=== PATIENT | male | born 1990 | race African-American/Black ===

== ENCOUNTER 2018-07-17 13:11 | Emergency (ER) | payer SELFPAY ==
--- NOTE | 2018-07-17 15:29 | ER ---
Nurse's Notes [facility] Name: Tyler Mahmood Age: 27 yrs Sex: Male : 1990 Arrival Date: 07/17/2018 Time: 13:15 Bed 11 Private MD: None, None Diagnosis: Otitis media, unspecified, right ear;Influenza due to identified novel influenza A virus Presentation: 07/17 13:17 Presenting complaint: Patient states: i had cough, runny nose, congestion started 2 hj days ago and its getting worse last night; i want a work note too that i will go back to work tomorrow;. Transition of care: patient was not received from another setting of care. Onset of symptoms was July 17, 2018. Risk Assessment: Do you want to hurt yourself or someone else? Patient reports no desire to harm self or others. Initial Sepsis Screen: Does the patient meet any 2 criteria? No. Patient's initial sepsis screen is negative. Does the patient have a suspected source of infection? No. Patient's initial sepsis screen is negative. Care prior to arrival: None. 13:17 Method Of Arrival: Ambulatory 13:17 Acuity: ANGELINE 4 hj Triage Assessment: 13:18 Headache History: Denies prior headaches. General: Appears in no apparent distress. hj uncomfortable, Behavior is calm, cooperative, appropriate for age. Pain: Complains of pain in head Pain Pain began Also complains of. Neuro: Level of Consciousness is awake, alert, obeys commands, Oriented to person, place, time, situation, Appropriate for age. Historical: - Allergies: 13:18 No Known Allergies; hj - Home Meds: 13:18 None [Active]; hj - PMHx: 13:18 None; hj - PSHx: 13:18 None; hj - Immunization history:: Adult Immunizations up to date. - Social history:: Smoking status: Patient/guardian denies using tobacco, Patient/guardian denies using alcohol. - Ebola Screening: : Patient negative for fever greater than or equal to 101.5 degrees Fahrenheit, and additional compatible Ebola Virus Disease symptoms Patient denies exposure to infectious person Patient denies travel to an Ebola-affected area in the 21 days before illness onset. Screenin:19 Abuse screen: Denies threats or abuse. Denies injuries from another. Nutritional hj screening: No deficits noted. Tuberculosis screening: No symptoms or risk factors identified. Fall Risk None identified. Assessment: 14:28 General: Appears in no apparent distress. comfortable. General: Reports fever for. iw Pain: Complains of pain in head. Neuro: Level of Consciousness is awake, alert, obeys commands, Oriented to person, place, time, situation, Moves all extremities. Cardiovascular: Patient's skin is warm and dry. Respiratory: Airway is patent Respiratory effort is even, unlabored, Respiratory pattern is regular. Derm: Skin is intact, is healthy with good turgor. Musculoskeletal: Range of motion: intact in all extremities. Vital Signs: 13:19 BP 134 / 84; Pulse 85; Resp 18; Temp 97.7(O); Pulse Ox 100% on R/A; Weight 131.54 kg; hj Height 5 ft. 9 in. (175.26 cm); Pain 5/10; 13:19 Body Mass Index 42.82 (131.54 kg, 175.26 cm) hj ED Course: 13:15 Patient arrived in ED. mr 13:16 None, None is Private Physician. mr 13:18 Triage completed. hj 13:19 Arm band placed on left wrist. hj 13:19 Patient has correct armband on for positive identification. Placed in gown. Bed in low hj position. Call light in reach. Side rails up X 1. Adult w/ patient. 13:54 Tata Johansen, RN is Primary Nurse. iw 14:03 Britton Santos PA is PHCP. cp 14:03 Kvng Ospina MD is Attending Physician. cp 15:51 No provider procedures requiring assistance completed. Patient did not have IV access iw during this emergency room visit. Administered Medications: No medications were administered Outcome: 15:28 Discharge ordered by MD. cp 15:52 Discharged to home ambulatory. iw 15:52 Condition: good 15:52 Discharge instructions given to patient, Instructed on discharge instructions, follow up and referral plans. medication usage, Demonstrated understanding of instructions, follow-up care, medications, Prescriptions given X 1. 15:53 Patient left the ED. ms Signatures: Bridgett Cole mr Tata Johansen RN RN Raya Martinez ms Perez Rey RN RN Britton Santos PA PA cp Corrections: (The following items were deleted from the chart) 13:21 13:17 Presenting complaint: Patient states: i had cough, runny nose, congestion started hj 2 days ago and its getting worse last night; hj 13:22 13:19 Pulse 85bpm; Resp 18bpm; Pulse Ox 100% RA; Temp 97.7F Oral; 131.54 kg; Height 5 hj ft. 9 in.; BMI: 42.8; Pain 5/10; hj
--- NOTE | 2018-07-17 15:29 | EDPHYS ---
Physician Documentation [facility] Name: Tyler Mahmood Age: 27 yrs Sex: Male : 1990 Arrival Date: 07/17/2018 Time: 13:15 Bed 11 Private MD: None, None ED Physician Kvng Ospina HPI: 07/17 14:15 This 27 yrs old Black Male presents to ER via Ambulatory with complaints of Sinus cp Congestion, Headache, Dizziness. 14:15 The patient or guardian reports cough, that is intermittent. cp 14:15 Onset: The symptoms/episode began/occurred 3 day(s) ago. cp 14:15 Associated signs and symptoms: Pertinent positives: earache, sore throat, sinus cp pressure and sinus congestion, headache, Pertinent negatives: diarrhea, fever, vomiting. Historical: - Allergies: 13:18 No Known Allergies; hj - Home Meds: 13:18 None [Active]; hj - PMHx: 13:18 None; hj - PSHx: 13:18 None; hj - Immunization history:: Adult Immunizations up to date. - Social history:: Smoking status: Patient/guardian denies using tobacco, Patient/guardian denies using alcohol. - Ebola Screening: : Patient negative for fever greater than or equal to 101.5 degrees Fahrenheit, and additional compatible Ebola Virus Disease symptoms Patient denies exposure to infectious person Patient denies travel to an Ebola-affected area in the 21 days before illness onset. ROS: 14:20 Constitutional: Negative for body aches, chills, fever, poor PO intake. cp 14:20 Eyes: Negative for injury, pain, redness, and discharge. cp Exam: 14:25 Constitutional: The patient appears in no acute distress, alert, awake, non-toxic, well cp developed, well nourished, obese. 14:25 Head/Face: Normocephalic, atraumatic. cp 14:25 Eyes: Periorbital structures: appear normal, Conjunctiva: normal, no exudate, no injection, Sclera: no appreciated abnormality, Lids and lashes: appear normal, bilaterally. 14:25 ENT: External ear(s): are unremarkable, Ear canal(s): are normal, clear, TM's: bulging, is not appreciated, bilaterally, erythema, that is mild, on the right, Examination of the other ear shows no obvious abnormality, Nose: is normal, Mouth: Lips: moist, Oral mucosa: pink and intact, moist, Posterior pharynx: Airway: no evidence of obstruction, patent, Tonsils: with erythema, no enlargement, no exudate, Uvula: midline, swelling, is not appreciated, erythema, that is mild, exudate, is not appreciated. 14:25 Neck: ROM/movement: is normal, is supple, without pain, no range of motions limitations, no meningismus, no nuchal rigidity. 14:25 Chest/axilla: Inspection: normal, Palpation: is normal, no crepitus, no tenderness. 14:25 Cardiovascular: Rate: normal, Rhythm: regular. 14:25 Respiratory: the patient does not display signs of respiratory distress, Respirations: normal, no use of accessory muscles, no retractions, no splinting, no tachypnea, labored breathing, is not present, Breath sounds: are clear throughout, no decreased breath sounds, no stridor, no wheezing. 14:25 Abdomen/GI: Exam negative for discomfort, distension, guarding, Inspection: obese 14:25 Skin: cellulitis, is not appreciated, no rash present. Vital Signs: 13:19 BP 134 / 84; Pulse 85; Resp 18; Temp 97.7(O); Pulse Ox 100% on R/A; Weight 131.54 kg; hj Height 5 ft. 9 in. (175.26 cm); Pain 5/10; 13:19 Body Mass Index 42.82 (131.54 kg, 175.26 cm) hj MDM: 14:03 Patient medically screened. cp 15:27 Data reviewed: vital signs, nurses notes, lab test result(s). cp 15:27 Differential Diagnosis: Bronchitis Influenza Sinusitis Otitis Media Pneumonia. cp Counseling: I had a detailed discussion with the patient and/or guardian regarding: the historical points, exam findings, and any diagnostic results supporting the discharge/admit diagnosis, lab results, to return to the emergency department if symptoms worsen or persist or if there are any questions or concerns that arise at home. 07/17 14:08 Order name: Influenza Screen (a \T\ B); Complete Time: 15:24 cp 07/17 15:25 Interpretation: Reviewed. cp Administered Medications: No medications were administered Disposition: 07/17/18 15:28 Discharged to Home. Impression: Otitis media, unspecified, right ear, Influenza due to identified novel influenza A virus. - Condition is Stable. - Discharge Instructions: Otitis Media, Adult, Influenza, Adult, Form - Excuse from Work, School, or Physical Activity. - Prescriptions for Zithromax Z- Rashid 250 mg Oral Tablet - take 1 tablet by ORAL route as directed for 5 days Day 1 - take two (2) tablets one time. Day 2, 3, 4 , 5 take one (1) tablet once daily.; 6 tablet. - Work release form, Medication Reconciliation Form, Thank You Letter, Antibiotic Education, Prescription Opioid Use form. - Follow up: Private Physician; When: 2 - 3 days; Reason: symptoms continue. - Problem is new. - Symptoms have improved. Addendum: 07/18/2018 17:33 Co-signature as Attending Physician, Kvng Ospina MD. g s Signatures: Dispatcher [employer] EDRaya Tejada ms, Henry, RN RN hj Page, Corey, PA PA cp Starr, Gregory, MD MD Corrections: (The following items were deleted from the chart) 07/17 15:53 15:28 07/17/2018 15:28 Discharged to Home. Impression: Otitis media, unspecified, right ms ear; Influenza due to identified novel influenza A virus. Condition is Stable. Forms are Medication Reconciliation Form, Thank You Letter, Antibiotic Education, Prescription Opioid Use. Follow up: Private Physician; When: 2 - 3 days; Reason: symptoms continue. Problem is new. Symptoms have improved. cp
== END 2018-07-17 15:53 | disposition home or self-care (01) ==
LOC: ER 13:11
DX: J10.1 Influenza due to other identified influenza virus with other respiratory manifestations (principal); H66.91 Otitis media, unspecified, right ear
CPT/HCPCS: 87804; 99282

== ENCOUNTER 2019-12-10 21:47 | Emergency (ER) | payer SELFPAY, OTHER ==
--- OUTSIDE RECORDS SUMMARY | 2019-12-10 21:48 | XMS REPORT | Continuity of Care Document ---
:1990 Author Organization [facility] t Address [facility]ly [facility] [place] [address] Care Team Providers Name Role Phone Unavailable Unavailable Unavailable Problems This patient has no known problems. Allergies, Adverse Reactions, Alerts This patient has no known allergies or adverse reactions. Medications This patient has no known medications. Procedures This patient has no known procedures. Results This patient has no known results.
--- NOTE | 2019-12-10 23:57 | EDPHYS ---
Physician Documentation [facility] Name: Tyler Mahmood Age: 29 yrs Sex: Male : 1990 Arrival Date: 12/10/2019 Time: 21:52 Bed 15 Private MD: ED Physician Kenn Crouch HPI: 12/09 23:50 This 29 yrs old Black Male presents to ER via Ambulatory with complaints of Fever, tw4 Doesn't Feel Right. 23:50 The patient reports fever, not measured (subjective). Onset: The symptoms/episode tw4 began/occurred 5 day(s) ago. Modifying factors: there are no obvious modifying factors. Associated signs and symptoms: Pertinent positives: headache. Severity of symptoms: At their worst the symptoms were moderate in the emergency department the symptoms are unchanged. The patient has not experienced similar symptoms in the past. Historical: - Allergies: 21:57 No Known Allergies; ca1 - Home Meds: 21:57 None [Active]; ca1 - PMHx: :57 None; ca1 - PSHx: 21:57 None; ca1 - Immunization history:: Adult Immunizations up to date. - Social history:: Smoking status: Patient denies any tobacco usage or history of. ROS: 23:50 Cardiovascular: Negative for chest pain, palpitations, and edema, Respiratory: Negative tw4 for shortness of breath, cough, wheezing, and pleuritic chest pain, Abdomen/GI: Negative for abdominal pain, nausea, vomiting, diarrhea, and constipation, Back: Negative for injury and pain, MS/Extremity: Negative for injury and deformity, Skin: Negative for injury, rash, and discoloration. 23:50 Constitutional: Positive for body aches, fatigue, fever, Negative for poor PO intake. 23:50 Neuro: Positive for headache, Negative for altered mental status, dizziness, gait disturbance, tinnitus, tremor, visual changes. Exam: 23:51 Constitutional: This is a well developed, well nourished patient who is awake, alert, tw4 and in no acute distress. Head/Face: Normocephalic, atraumatic. Cardiovascular: Regular rate and rhythm with a normal S1 and S2. No gallops, murmurs, or rubs. Normal PMI, no JVD. No pulse deficits. Respiratory: Lungs have equal breath sounds bilaterally, clear to auscultation and percussion. No rales, rhonchi or wheezes noted. No increased work of breathing, no retractions or nasal flaring. Abdomen/GI: Soft, non-tender, with normal bowel sounds. No distension or tympany. No guarding or rebound. No evidence of tenderness throughout. Back: No spinal tenderness. No costovertebral tenderness. Full range of motion. MS/ Extremity: Pulses equal, no cyanosis. Neurovascular intact. Full, normal range of motion. Neuro: Awake and alert, GCS 15, oriented to person, place, time, and situation. Cranial nerves II-XII grossly intact. Motor strength 5/5 in all extremities. Sensory grossly intact. Cerebellar exam normal. Normal gait. Vital Signs: 21:54 BP 143 / 71; Pulse 101; Resp 18 S; Temp 99.6(TE); Pulse Ox 98% on R/A; Weight 145.15 kg ca1 (R); Height 5 ft. 9 in. (175.26 cm) (R); 21:54 Body Mass Index 47.26 (145.15 kg, 175.26 cm) ca1 MDM: 22:38 Patient medically screened. tw4 23:51 Differential diagnosis: viral Infection, bacterial infection, URI, bronchitis, tw4 pneumonia. Data reviewed: vital signs, nurses notes. Data reviewed: lab test result(s), Flu: negative. Data interpreted: Pulse oximetry: Interpretation: normal. Counseling: I had a detailed discussion with the patient and/or guardian regarding: the historical points, exam findings, and any diagnostic results supporting the discharge/admit diagnosis, radiology results. Special discussion: I discussed with the patient/guardian in detail that at this point there is no indication for admission to the hospital. It is understood, however, that if the symptoms persist or worsen the patient needs to return immediately for re-evaluation. 12/09 22:44 Order name: COVID-19 12/09 22:44 Order name: Flu 12/09 22:44 Order name: Strep 12/09 22:44 Order name: Document PUI#; Complete Time: 23:19 12/09 23:53 Order name: Throat Culture EDMS 12/09 22:44 Order name: Labs collected and sent; Complete Time: 23:19 12/09 22:44 Order name: O2 Per Protocol; Complete Time: 23:19 tw4 Administered Medications: No medications were administered Disposition: 12/10/19 23:56 Discharged to Home. Impression: Headache, Viral infection, unspecified. - Condition is Stable. - Discharge Instructions: General Headache Without Cause, Viral Respiratory Infection. - Prescriptions for Ibuprofen 800 mg Oral Tablet - take 1 tablet by ORAL route every 8 hours As needed take with food; 30 tablet. Albuterol Sulfate 90 mcg/actuation - inhale 1-2 puff by INHALATION route every 4-6 hours; 1 Inhaler. - Medication Reconciliation Form, Thank You Letter, Antibiotic Education, Prescription Opioid Use form. - Follow up: Private Physician; When: Upon discharge from the Emergency Department; Reason: Recheck today's complaints, Continuance of care, Re-evaluation by your physician. - Problem is new. - Symptoms are unchanged. Addendum: 12/14/2019 13:44 Addendum: Called and notified patient of positive COVID-19 result at 1344, feels r n better, questions answered, told health department would be in contact for further recommendations and proof of positive test. . Signatures: Dispatcher [employer] EDMS Deepak Rodriguez MD MD rn Wadley, Terrence, MD MD tw4 Zandra Lieberman RN RN ls4 Sarah Blood RN RN ca1 Corrections: (The following items were deleted from the chart) 12/10 00:20 07 23:56 12/10/2019 23:56 Discharged to Home. Impression: Headache; Viral infection, ls4 unspecified. Condition is Stable. Forms are Medication Reconciliation Form, Thank You Letter, Antibiotic Education, Prescription Opioid Use. Follow up: Private Physician; When: Upon discharge from the Emergency Department; Reason: Recheck today's complaints, Continuance of care, Re-evaluation by your physician. Problem is new. Symptoms are unchanged. tw4
--- NOTE | 2019-12-10 23:57 | ER ---
Nurse's Notes [facility] Name: Tyler Mahmood Age: 29 yrs Sex: Male : 1990 Arrival Date: 12/10/2019 Time: 21:52 Bed 15 Private MD: Diagnosis: Headache;Viral infection, unspecified Presentation: 12/09 21:54 Chief complaint: Patient states: Headache x 5-6 days. Reports fever. Htemp 100.3F. ca1 Coronavirus screen: Patient denies a cough. Patient denies shortness of breath or difficulty breathing. Patient reports a measured and/or subjective temperature greater than 100.4F. Patient denies travel on a cruise ship or to a country the [facility] currently lists as an affected area. Patient denies contact with known and/or suspected case of COVID-19. Surgical mask in place. Instructed on keeping mask at all times and keep 6 feet distance from other people in the lobby. Verbalized understanding. Ebola Screen: Patient negative for fever greater than or equal to 101.5 degrees Fahrenheit, and additional compatible Ebola Virus Disease symptoms Patient denies exposure to infectious person. Patient denies travel to an Ebola-affected area in the 21 days before illness onset. No symptoms or risks identified at this time. Initial Sepsis Screen: Does the patient meet any 2 criteria? No. Patient's initial sepsis screen is negative. Does the patient have a suspected source of infection? No. Patient's initial sepsis screen is negative. Risk Assessment: Do you want to hurt yourself or someone else? Patient reports no desire to harm self or others. Onset of symptoms was December 10, 2019. 21:54 Method Of Arrival: Ambulatory ca1 21:54 Acuity: ANGELINE 4 ca1 Triage Assessment: 23:19 General: Appears in no apparent distress. comfortable, Behavior is calm, cooperative. ls4 Pain: Denies pain. Neuro: No deficits noted. Cardiovascular: Capillary refill < 3 seconds. Respiratory: Airway is patent Respiratory effort is even, unlabored, Respiratory pattern is regular, Breath sounds are clear bilaterally. GI: No deficits noted. No signs and/or symptoms were reported involving the gastrointestinal system. : No deficits noted. No signs and/or symptoms were reported regarding the genitourinary system. Derm: Skin is intact, is healthy with good turgor, Skin is dry, Skin is normal, Skin temperature is warm. Musculoskeletal: No deficits noted. No signs and/or symptoms reported regarding the musculoskeletal system. Historical: - Allergies: 21:57 No Known Allergies; ca1 - Home Meds: 21:57 None [Active]; ca1 - PMHx: 21:57 None; ca1 - PSHx: 21:57 None; ca1 - Immunization history:: Adult Immunizations up to date. - Social history:: Smoking status: Patient denies any tobacco usage or history of. Screenin:27 Abuse screen: Denies threats or abuse. Denies injuries from another. Nutritional ls4 screening: No deficits noted. Tuberculosis screening: No symptoms or risk factors identified. Fall Risk None identified. Vital Signs: 21:54 BP 143 / 71; Pulse 101; Resp 18 S; Temp 99.6(TE); Pulse Ox 98% on R/A; Weight 145.15 kg ca1 (R); Height 5 ft. 9 in. (175.26 cm) (R); 21:54 Body Mass Index 47.26 (145.15 kg, 175.26 cm) ca1 ED Course: 21:52 Patient arrived in ED. ds1 21:53 Kenn Crouch MD is Attending Physician. tw4 21:56 Triage completed. ca1 21:57 Arm band placed on right wrist. ca1 23:18 Zandra Lieberman, RN is Primary Nurse. ls4 23:19 covid swab, flu swab and strep. ls4 23:27 Patient has correct armband on for positive identification. Bed in low position. Call ls4 light in reach. Side rails up X 1. Pulse ox on. NIBP on. Verbal reassurance given. 23:27 No provider procedures requiring assistance completed. Patient did not have IV access ls4 during this emergency room visit. Administered Medications: No medications were administered Outcome: 23:56 Discharge ordered by . tw4 12/10 00:20 Patient left the ED. ls4 Signatures: Nya Ballard ds1 Kenn Crouch MD MD tw4 Zandra Lieberman, RN RN ls4 Sarah Blood RN RN ca1
[2019-12-11 00:52] VITALS: BP 143/71; TEMP 99.6; O2SAT 98
== END 2019-12-11 00:20 | disposition home or self-care (01) ==
LOC: ER 21:47
DX: U07.1 COVID-19 (principal); B34.9 Viral infection, unspecified
CPT/HCPCS: 87070; 87081; 87804; 99282; U0002

== ENCOUNTER 2020-04-20 16:08 | Emergency (ER) | payer OTHER, SELFPAY ==
--- OUTSIDE RECORDS SUMMARY | 2020-04-20 16:09 | XMS REPORT | Continuity of Care Document ---
:1990 Author Organization [facility] t Address [address] [place] [address] [address] [place] [address] Care Team Providers Name Role Phone Unavailable Unavailable Unavailable Problems This patient has no known problems. Allergies, Adverse Reactions, Alerts This patient has no known allergies or adverse reactions. Medications This patient has no known medications. Procedures This patient has no known procedures. Results This patient has no known results.
--- NOTE | 2020-04-20 17:49 | EDPHYS ---
Physician Documentation [facility] Name: Tyler Mahmood Age: 29 yrs Sex: Male : 1990 Arrival Date: 04/20/2020 Time: 16:08 Bed 17 Private MD: ED Physician Deepak Rodriguez HPI: 04/20 17:43 This 29 yrs old Black Male presents to ER via Ambulatory with complaints of Sore Throat.cp 17:43 The patient presents with sore throat, dysphagia, of both solids and liquids. The cp patient describes throat pain as constant. Onset: The symptoms/episode began/occurred 2 day(s) ago. Severity of symptoms: in the emergency department the symptoms are unchanged, despite home interventions. Associated signs and symptoms: Pertinent positives: earache, Pertinent negatives cough, diarrhea, flu-like symptoms, vomiting. Historical: - Allergies: 16:23 No Known Allergies; ss - Home Meds: 16:23 None [Active]; ss - PMHx: 16:23 None; ss - PSHx: 16:23 None; ss - Immunization history:: Adult Immunizations up to date. - Social history:: Smoking status: Patient denies any tobacco usage or history of. ROS: 17:44 Eyes: Negative for injury, pain, redness, and discharge. cp 17:44 Constitutional: Negative for body aches, chills, fever, poor PO intake. 17:44 ENT: Positive for difficulty swallowing, ear pain, sore throat, Negative for drainage from ear(s), difficulty handling secretions. 17:44 Neck: Negative for pain with movement, pain at rest, stiffness. 17:44 Cardiovascular: Negative for chest pain. 17:44 Respiratory: Negative for cough, shortness of breath, wheezing. 17:44 Abdomen/GI: Negative for abdominal pain, nausea, vomiting, and diarrhea. 17:44 Skin: Negative for rash. 17:44 Neuro: Negative for altered mental status, headache, weakness. 17:44 All other systems are negative. Exam: 17:45 Head/Face: Normocephalic, atraumatic. cp 17:45 Constitutional: The patient appears in no acute distress, alert, awake, non-toxic, well developed, well nourished, obese. 17:45 Eyes: Periorbital structures: appear normal, Conjunctiva: normal, no exudate, no injection, Lids and lashes: appear normal, bilaterally. 17:45 ENT: External ear(s): are unremarkable, Ear canal(s): are normal, clear, TM's: erythema, is not appreciated, bilaterally, Nose: is normal, Mouth: Lips: moist, Oral mucosa: pink and intact, moist, Posterior pharynx: Airway: no evidence of obstruction, patent, Tonsils: bilaterally enlarged, with erythema, with exudate, Uvula: midline, erythema, that is mild. 17:45 Neck: ROM/movement: Meningeal signs: are not present. 17:45 Chest/axilla: Inspection: normal. 17:45 Cardiovascular: Rate: tachycardic. 17:45 Respiratory: the patient does not display signs of respiratory distress, Respirations: normal, no use of accessory muscles, no retractions, labored breathing, is not present. Vital Signs: 16:18 BP 135 / 93; Pulse 115; Resp 16; Temp 98.9(TE); Pulse Ox 97% on R/A; Weight 135.62 kg; ss Height 5 ft. 9 in. (175.26 cm); Pain 7/10; 18:03 BP 153 / 91; Pulse 102; Resp 19; Pulse Ox 99% on R/A; tw2 16:18 Body Mass Index 44.15 (135.62 kg, 175.26 cm) ss MDM: 17:40 Patient medically screened. cp 17:45 Differential diagnosis: group A strep tonsillitis, corrine's angina, mononucleosis, cp peritonsillar abscess pharyngitis, retropharyngeal abcess. 17:49 Data reviewed: vital signs, nurses notes, and as a result, I will discharge patient. cp 17:49 Counseling: I had a detailed discussion with the patient and/or guardian regarding: the cp historical points, exam findings, and any diagnostic results supporting the discharge/admit diagnosis. Response to treatment: the patient's symptoms have mildly improved after treatment, and as a result, I will discharge patient. 17:53 ED course: Review of [place] prescription monitor website shows no active RXs for cp narcotic medications. 04/20 17:40 Order name: Strep cp Administered Medications: 17:47 Not Given (Physician Discretion): GI Cocktail without - (Maalox Suspension 30 cp ml, Lidocaine Liquid 2 % 15 ml) PO once; swish, gargle, swallow 17:54 Drug: Augmentin 875 mg Route: PO; tw2 18:04 Follow up: Response: No adverse reaction tw2 17:54 Drug: Ibuprofen 800 mg Route: PO; tw2 18:04 Follow up: Response: No adverse reaction; Pain is decreased tw2 17:54 Drug: Lortab Liquid 15 ml {Note: RASS 0.} Route: PO; tw2 18:10 Follow up: Response: No adverse reaction; Pain is decreased; RASS: Alert and Calm (0) tw2 Disposition: 18:19 Co-signature as Attending Physician, Deepak Rodriguez MD. rn Disposition: 04/20/20 17:49 Discharged to Home. Impression: Acute tonsillitis. - Condition is Stable. - Discharge Instructions: Tonsillitis. - Prescriptions for Augmentin 875- 125 mg Oral Tablet - take 1 tablet by ORAL route every 12 hours for 10 days; 20 tablet. Ibuprofen 800 mg Oral Tablet - take 1 tablet by ORAL route every 8 hours As needed take with food; 30 tablet. Tylenol- Codeine #3 300-30 mg Oral Tablet - take 2 tablets by ORAL route every 8 hours As needed; 15 tablet. - Medication Reconciliation Form, Thank You Letter, Antibiotic Education, Prescription Opioid Use, Work release form form. - Follow up: Private Physician; When: 1 - 2 days; Reason: Worsening of condition. - Problem is new. - Symptoms have improved. Signatures: Dispatcher [employer] EDDeepak uDnlap MD MD rn Smirch, Shelby, RN RN ss Page, Corey, PA PA cp Wise, Tara, RN RN tw2 Corrections: (The following items were deleted from the chart) 18:13 17:49 04/20/2020 17:49 Discharged to Home. Impression: Acute tonsillitis. Condition is tw2 Stable. Forms are Work release form, Medication Reconciliation Form, Thank You Letter, Antibiotic Education, Prescription Opioid Use. Follow up: Private Physician; When: 1 - 2 days; Reason: Worsening of condition. Problem is new. Symptoms have improved. cp
--- NOTE | 2020-04-20 17:49 | ER ---
Nurse's Notes [facility] Name: Tyler Mahmood Age: 29 yrs Sex: Male : 1990 Arrival Date: 04/20/2020 Time: 16:08 Bed 17 Private MD: Diagnosis: Acute tonsillitis Presentation: 04/20 16:18 Chief complaint: Patient states: sore throat that began 2 days ago. Coronavirus screen: ss Client denies travel out of the [place] in the last 14 days. Ebola Screen: Patient denies exposure to infectious person. Patient denies travel to an Ebola-affected area in the 21 days before illness onset. Initial Sepsis Screen: Does the patient meet any 2 criteria? HR > 90 bpm. Does the patient have a suspected source of infection? No. Patient's initial sepsis screen is negative. Risk Assessment: Do you want to hurt yourself or someone else? Patient reports no desire to harm self or others. Onset of symptoms was April 18, 2020. 16:18 Method Of Arrival: Ambulatory 16:18 Acuity: ANGELINE 4 Historical: - Allergies: 16:23 No Known Allergies; ss - Home Meds: 16:23 None [Active]; ss - PMHx: 16:23 None; ss - PSHx: 16:23 None; ss - Immunization history:: Adult Immunizations up to date. - Social history:: Smoking status: Patient denies any tobacco usage or history of. Screenin:04 Abuse screen: Denies threats or abuse. Nutritional screening: No deficits noted. tw2 Tuberculosis screening: No symptoms or risk factors identified. Fall Risk None identified. Assessment: 17:30 General: Appears in no apparent distress. obese, well groomed, Behavior is calm, tw2 cooperative, appropriate for age. Pain: Complains of pain in uvula, left aspect of posterior pharynx and right aspect of posterior pharynx. Neuro: Level of Consciousness is awake, alert, obeys commands, Oriented to person, place, time, situation. Cardiovascular: Patient's skin is warm and dry. Respiratory: Airway is patent Respiratory effort is even, unlabored, Respiratory pattern is regular, symmetrical, Breath sounds are clear bilaterally. GI: No signs and/or symptoms were reported involving the gastrointestinal system. Abdomen is round non-distended, obese. : No signs and/or symptoms were reported regarding the genitourinary system. EENT: Throat is reddened. Derm: Skin is intact, is healthy with good turgor, Skin is dry. Musculoskeletal: Range of motion: intact in all extremities. 17:36 Reassessment: provider at bedside at this time. tw2 17:50 Reassessment: pt states, "I can get someone to come get me". tw2 18:03 Reassessment: Patient appears in no apparent distress at this time. No changes from tw2 previously documented assessment. Patient and/or family updated on plan of care and expected duration. Pain level reassessed. Patient is alert, oriented x 3, equal unlabored respirations, skin warm/dry/pink. 18:12 Reassessment: Patient appears in no apparent distress at this time. No changes from tw2 previously documented assessment. Patient and/or family updated on plan of care and expected duration. Pain level reassessed. Patient is alert, oriented x 3, equal unlabored respirations, skin warm/dry/pink. Vital Signs: 16:18 BP 135 / 93; Pulse 115; Resp 16; Temp 98.9(TE); Pulse Ox 97% on R/A; Weight 135.62 kg; ss Height 5 ft. 9 in. (175.26 cm); Pain 7/10; 18:03 BP 153 / 91; Pulse 102; Resp 19; Pulse Ox 99% on R/A; tw2 16:18 Body Mass Index 44.15 (135.62 kg, 175.26 cm) ED Course: 16:08 Patient arrived in ED. ds1 16:23 Triage completed. ss 16:23 Arm band placed on left wrist. ss 17:30 Bed in low position. Call light in reach. Pulse ox on. NIBP on. tw2 17:31 Britton Santos PA is PHCP. cp 17:31 Deepak Rodriguez MD is Attending Physician. cp 17:36 Eugenia Toussaint, LAURA is Primary Nurse. tw2 17:58 Strep Sent. tw2 18:12 No provider procedures requiring assistance completed. Patient did not have IV access tw2 during this emergency room visit. Administered Medications: 17:47 Not Given (Physician Discretion): GI Cocktail without - (Maalox Suspension 30 cp ml, Lidocaine Liquid 2 % 15 ml) PO once; swish, gargle, swallow 17:54 Drug: Augmentin 875 mg Route: PO; tw2 18:04 Follow up: Response: No adverse reaction tw2 17:54 Drug: Ibuprofen 800 mg Route: PO; tw2 18:04 Follow up: Response: No adverse reaction; Pain is decreased tw2 17:54 Drug: Lortab Liquid 15 ml {Note: RASS 0.} Route: PO; tw2 18:10 Follow up: Response: No adverse reaction; Pain is decreased; RASS: Alert and Calm (0) tw2 Outcome: 17:49 Discharge ordered by . vasquez 18:12 Discharged to home ambulatory, with family. tw2 18:12 Condition: stable 18:12 Discharge instructions given to patient, Instructed on discharge instructions, follow up and referral plans. no drinking with medication, no driving heavy equipment, medication usage, Demonstrated understanding of instructions, follow-up care, medications, Prescriptions given X 3. 18:13 Patient left the ED. tw2 Signatures: Nya Ballard ds1 Gilda Tang RN RN Britton Arciniega PA PA cp Wise, Tara RN RN tw2
[2020-04-20] MEDS ORDERED: HYDROCOD 2.5mg-ACETAMIN 108mg/5mL Soln ONE (18:02)
[2020-04-20] MEDS ORDERED: IBUPROFEN 400 MG TAB ONE (18:03)
[2020-04-20] MEDS ORDERED: AMOX/K CLAV 875 MG TAB ONE (18:03)
[2020-04-21 04:09] VITALS: TEMP 98.9
[2020-04-21 04:11] VITALS: BP 153/91; O2SAT 99
== END 2020-04-20 18:13 | disposition home or self-care (01) ==
LOC: ER 16:08
DX: J03.90 Acute tonsillitis, unspecified (principal)
CPT/HCPCS: 87070; 87081; 99284

== ENCOUNTER 2021-04-28 19:11 | Emergency (ER) | payer OTHER, SELFPAY ==
--- OUTSIDE RECORDS SUMMARY | 2021-04-28 19:14 | XMS REPORT | Continuity of Care Document ---
:1990 Author Organization [facility] t Address [address] [place] [address] Care Team Providers Name Role Phone Unavailable Unavailable Unavailable Problems This patient has no known problems. Allergies, Adverse Reactions, Alerts This patient has no known allergies or adverse reactions. Medications This patient has no known medications. Procedures This patient has no known procedures. Encounters Start End Encounter Admission Attending Care Care Encounter Source Date/Time Date/Time Type Type Clinicians Facility Department ID 2021-03-21 2021-03-21 Outpatient [facility] [id number] [facility] [address] 00:00:00 00:00:00 denny Jojo [facility] ent Clinics 2021-01-23 2021-01-23 Outpatient [facility] [id number] [facility] 00:00:00 00:00:00 [facility] ent Clinics Results This patient has no known results.
[2021-04-28] MEDS ORDERED: HYDROCODONE/APAP 10/325 TAB ONE (19:34)
--- NOTE | 2021-04-28 21:11 | ER ---
Nurse's Notes [facility] Name: Tyler Mahmood Age: 30 yrs Sex: Male : 1990 Arrival Date: 04/28/2021 Time: 19:15 Bed 12 Private MD: Diagnosis: Strain of adductor muscle, fascia and tendon of left thigh Presentation: 04/28 19:22 Chief complaint: Patient states: I fell and I felt my left leg pop, I think I may have ld1 torn my hamstring. Coronavirus screen: At this time, the client does not indicate any symptoms associated with coronavirus-19. Ebola Screen: No symptoms or risks identified at this time. Initial Sepsis Screen: Does the patient meet any 2 criteria? No. Patient's initial sepsis screen is negative. Does the patient have a suspected source of infection? No. Patient's initial sepsis screen is negative. Risk Assessment: Do you want to hurt yourself or someone else? Patient reports no desire to harm self or others. Onset of symptoms was April 28, 2021 at 19:23. 19:22 Method Of Arrival: Ambulatory ld1 19:22 Acuity: ANGELINE 4 ld1 Triage Assessment: 19:24 General: Appears in no apparent distress. comfortable, Behavior is calm, cooperative, ld1 appropriate for age. Pain: Complains of pain in left leg Pain does not radiate. Pain currently is 8 out of 10 on a pain scale. Quality of pain is described as throbbing, Pain began suddenly, Is continuous. EENT: No signs and/or symptoms were reported regarding the EENT system. Neuro: Level of Consciousness is awake, alert, obeys commands, Oriented to person, place, time, situation, Appropriate for age. Cardiovascular: Capillary refill < 3 seconds Patient's skin is warm and dry. Respiratory: Airway is patent Respiratory effort is even, unlabored, Respiratory pattern is regular, symmetrical. GI: Abdomen is round non-distended. : No signs and/or symptoms were reported regarding the genitourinary system. Derm: No signs and/or symptoms reported regarding the dermatologic system. Musculoskeletal: Reports pain in left leg. Injury Description: Pt fell and felt a pop in his right thigh. Historical: - Allergies: 19:24 No Known Allergies; ld1 - Home Meds: 19:24 sertraline 100 mg oral tab 1 tab once daily [Active]; ld1 - PMHx: 19:24 Anxiety; ld1 - PSHx: 19:24 Vasectomy; ld1 - Immunization history:: Adult Immunizations up to date, Client reports receiving the 2nd dose of the Covid vaccine. - Social history:: Smoking status: Patient denies any tobacco usage or history of. Patient/guardian denies using alcohol. Screenin:01 Abuse screen: Denies threats or abuse. Denies injuries from another. Nutritional lp1 screening: No deficits noted. Tuberculosis screening: No symptoms or risk factors identified. Fall Risk None identified. Assessment: 20:00 General: Appears uncomfortable, Behavior is appropriate for age. Pain: Complains of lp1 pain in left hamstring Pain currently is 8 out of 10 on a pain scale. Quality of pain is described as sharp, Pain began suddenly. Neuro: No deficits noted. Cardiovascular: Patient's skin is warm and dry. Respiratory: Respiratory effort is even, unlabored. GI: No signs and/or symptoms were reported involving the gastrointestinal system. : No signs and/or symptoms were reported regarding the genitourinary system. EENT: No signs and/or symptoms were reported regarding the EENT system. Derm: Skin is pink, warm \T\ dry. Musculoskeletal: Circulation, motion, and sensation intact. Reports pain in left hamstring. 21:00 Reassessment: Patient is alert, oriented x 3, equal unlabored respirations, skin lp1 warm/dry/pink. Patient reports no change in pain level, appears in no distress, on phone. Vital Signs: 19:22 BP 155 / 49; Pulse 67; Resp 18; Temp 97.6(O); Pulse Ox 99% on R/A; Weight 136.08 kg; ld1 Height 5 ft. 9 in. (175.26 cm); Pain 8/10; 19:22 Body Mass Index 44.30 (136.08 kg, 175.26 cm) ld1 ED Course: 19:15 Patient arrived in ED. bp1 19:22 Wanda [facility]arrow [facility]C [facility]. kb 19:22 Luis Aguilar MD is Attending Physician. kb 19:23 Triage completed. ld1 19:24 Arm band placed on right wrist. ld1 19:33 Zeina Corbin, RN is Primary Nurse. lp1 20:01 Patient has correct armband on for positive identification. lp1 20:14 Femur Left XRAY In Process Unspecified. EDMS 21:15 No provider procedures requiring assistance completed. Patient did not have IV access lp1 during this emergency room visit. Administered Medications: 19:36 Drug: Squires (HYDROcodone-acetaminophen) 10 mg-325 mg 1 tabs Route: PO; lp1 21:00 Follow up: Response: No adverse reaction lp1 Outcome: 21:11 Discharge ordered by . patrick 21:30 Discharged to home ambulatory, with significant other. lp1 21:30 Condition: good 21:30 Discharge instructions given to patient, Instructed on discharge instructions, follow up and referral plans. medication usage, Demonstrated understanding of instructions, follow-up care, medications, Prescriptions given X 2. 21:33 Patient left the ED. lp1 Signatures: Dispatcher [employer] EDMS Wanda Barrow, PJ-C ROUGHER OPERATOR-Zeina Navarro, RN RN lp1 Danica Cordero Lauren, RN RN ld1 Corrections: (The following items were deleted from the chart) 19:25 19:24 Home Meds: None; ld1 ld1 19:25 19:24 Home Meds: Zoloft 100 mg Oral tab 1 tab once daily; ld1 ld1
--- NOTE | 2021-04-28 21:11 | EDPHYS ---
Physician Documentation [facility] Name: Tyler Mahmood Age: 30 yrs Sex: Male : 1990 Arrival Date: 04/28/2021 Time: 19:15 Bed 12 Private MD: ED Physician Luis Aguilar HPI: 04/28 21:09 This 30 yrs old Black Male presents to ER via Ambulatory with complaints of Leg Injury. kb 21:09 The patient presents with pain. The complaints affect the left hamstring. Context: The kb problem was sustained at home, resulted from the patient falling, the patient can partially bear weight, the patient is able to ambulate, Problem is a result from a previous injury: No. Onset: The symptoms/episode began/occurred just prior to arrival. Modifying factors: The symptoms are alleviated by nothing. the symptoms are aggravated by nothing. Associated signs and symptoms: The patient has no apparent associated signs or symptoms. Treatment prior to arrival includes: no previous treatment. Severity of symptoms: At their worst the symptoms were moderate, in the emergency department the symptoms are unchanged. The patient has not experienced similar symptoms in the past. The patient has not recently seen a physician. Pt states he fell into the splits and felt a pop in left hamstring. c/o pain to posterior left thigh only. . Historical: - Allergies: 19:24 No Known Allergies; ld1 - Home Meds: 19:24 sertraline 100 mg oral tab 1 tab once daily [Active]; ld1 - PMHx: 19:24 Anxiety; ld1 - PSHx: 19:24 Vasectomy; ld1 - Immunization history:: Adult Immunizations up to date, Client reports receiving the 2nd dose of the Covid vaccine. - Social history:: Smoking status: Patient denies any tobacco usage or history of. Patient/guardian denies using alcohol. ROS: 21:08 Constitutional: Negative for fever, chills, and weight loss. kb 21:08 MS/extremity: Positive for pain, of the left hamstring, Negative for 21:08 All other systems are negative. Exam: 21:08 Constitutional: This is a well developed, well nourished patient who is awake, alert, kb and in no acute distress. Head/Face: Normocephalic, atraumatic. ENT: Moist Mucous membranes Respiratory: Respirations even and unlabored. No increased work of breathing, no retractions or nasal flaring. Skin: Warm, dry with normal turgor. Normal color. Neuro: Awake and alert, GCS 15, oriented to person, place, time, and situation. Moves all extremities. Normal gait. Psych: Awake, alert, with orientation to person, place and time. Behavior, mood, and affect are within normal limits. 21:08 Musculoskeletal/extremity: Extremities: grossly normal except: noted in the left hamstring: pain, ROM: intact in all extremities, Circulation is intact in all extremities. Sensation intact. Weight bearing: can bear weight with assistance only. Vital Signs: 19:22 BP 155 / 49; Pulse 67; Resp 18; Temp 97.6(O); Pulse Ox 99% on R/A; Weight 136.08 kg; ld1 Height 5 ft. 9 in. (175.26 cm); Pain 8/10; 19:22 Body Mass Index 44.30 (136.08 kg, 175.26 cm) ld1 MDM: 19:34 Patient medically screened. kb 21:07 Data reviewed: vital signs, nurses notes. Data interpreted: Pulse oximetry: on room air kb is 99 %. Interpretation: normal. Counseling: I had a detailed discussion with the patient and/or guardian regarding: the historical points, exam findings, and any diagnostic results supporting the discharge/admit diagnosis, radiology results, the need for outpatient follow up, a orthopedic surgeon, to return to the emergency department if symptoms worsen or persist or if there are any questions or concerns that arise at home. 04/28 19:22 Order name: Femur Left XRAY; Complete Time: 21:20 kb Administered Medications: 19:36 Drug: Elsie (HYDROcodone-acetaminophen) 10 mg-325 mg 1 tabs Route: PO; lp1 21:00 Follow up: Response: No adverse reaction lp1 Disposition: 23:23 Co-signature as Attending Physician, Luis gAuilar MD. [email or web address] Disposition Summary: 04/28/21 21:11 Discharge Ordered Location: Home kb Condition: Stable kb Diagnosis - Strain of adductor muscle, fascia and tendon of left thigh kb Followup: kb - With: Emergency Department - When: As needed - Reason: Worsening of condition Followup: kb - With: Private Physician - When: 2 - 3 days - Reason: Recheck today's complaints, Continuance of care, Re-evaluation by your physician Discharge Instructions: - Discharge Summary Sheet kb - Hamstring Strain kb Forms: - Medication Reconciliation Form kb - Thank You Letter kb - Antibiotic Education kb - Prescription Opioid Use kb - Work release form lp1 Prescriptions: - Cyclobenzaprine 10 mg Oral Tablet - take 1 tablet by ORAL route every 8 hours As needed; 21 tablet; Refills: 0, kb Product Selection Permitted - Diclofenac Sodium 75 mg Oral tablet,delayed release (DR/EC) - take 1 tablet by ORAL route 2 times per day As needed; 30 tablet; Refills: 0, kb Product Selection Permitted Signatures: Dispatcher [employer] EDMS Wanda Barrow, PJ-Elvia OLIVA-Zeina Navarro RN RN lp1 Luis Aguilar MD MD 7 Christa Britt RN RN ld1 Corrections: (The following items were deleted from the chart) 19:25 19:24 Home Meds: None; ld1 ld1 19:25 19:24 Home Meds: Zoloft 100 mg Oral tab 1 tab once daily; ld1 ld1
--- NOTE | 2021-04-28 21:18 | RAD REPORT ---
EXAM DESCRIPTION: RAD - Femur Left - 04/28/2021 8:14 pm CLINICAL HISTORY: PAIN COMPARISON: No comparisons FINDINGS: Mild left hip osteoarthritis. No fracture or dislocation of the left femur.
[2021-04-28 21:38] VITALS: BP 155/49; TEMP 97.6; O2SAT 99
== END 2021-04-28 21:33 | disposition home or self-care (01) ==
LOC: ER 19:11
DX: S76.212A Strain of adductor muscle, fascia and tendon of left thigh, initial encounter (principal); X58.XXXA Exposure to other specified factors, initial encounter; Y92.009 Unspecified place in unspecified non-institutional (private) residence as the place of occurrence of the external cause; F41.9 Anxiety disorder, unspecified
CPT/HCPCS: 99283

== ENCOUNTER 2021-09-06 07:40 | Day surgery (SDC) | payer OTHER ==
[2021-09-02 16:26] LABS: Hematocrit 39.9 % (39.6-49.0); Lymphocytes % 24.4 % (15.3-44.8); MPV 8.7 fL (7.6-11.3); RBC Red Blood Cell Count 5.73 M/uL (4.33-5.43)
[2021-09-02 16:33] LABS: BUN Blood Urea Nitrogen 12 mg/dL (7-18); Bicarbonate 27 mmol/L (21-32); Glucose Level 94 mg/dL (74-106); Potassium 4.1 mmol/L (3.5-5.1); Sodium Level 138 mmol/L (136-145)
--- NOTE | 2021-09-03 08:30 | EKG ---
Test Date: 2021-09-02 Test Time: 15:00:21 Leakage Tester: STEFF MEASUREMENT RESULTS: Intervals: Rate: 83 SC: 134 QRSD: 94 QT: 352 QTc: 413 Frankewing: P: 48 SC: 134 QRS: 37 T: -14 INTERPRETIVE STATEMENTS: Normal sinus rhythm Possible Inferior infarct, age undetermined Abnormal ECG No previous ECG available for comparison Electronically Signed On 09-03-21 08:28:02 CDT by Audi Monzon
[2021-09-06] MEDS ORDERED: BUPIVACAINE 0.25% PF 10 ML VIAL ONE (08:00)
[2021-09-06] MEDS ORDERED: Ringers Lactate 1,000 ML IV ONE (08:00)
[2021-09-06] MEDS ORDERED: CEFAZOLIN/SWI 2gm 2 GM/20 ML SYR ONE (08:01)
[2021-09-06] MEDS ORDERED: BUPIVACAINE 0.25% PF 10 ML VIAL IJ ONE ×3 (08:42→10:14)
[2021-09-06] MEDS ORDERED: ACETAMINOPHEN 500 MG TAB ONE (08:46)
[2021-09-06] MEDS ORDERED: CELECOXIB 100 MG CAPSULE ONE (08:47)
[2021-09-06] MEDS ORDERED: FENTANYL CITR 100 MCG/2 ML ONE ×2 (09:43→11:12)
[2021-09-06] MEDS ORDERED: propofoL 200 MG/20 ML VIAL IV ONE (09:44)
[2021-09-06] MEDS ORDERED: ONDANSETRON 4 MG/2 ML VIAL ONE ×2 (09:45→09:46)
[2021-09-06] MEDS ORDERED: MIDAZOLAM HCL 2 MG/2 ML INJ ONE (09:45)
[2021-09-06] MEDS ORDERED: ROCURONIUM 50 MG/5 ML VIAL IV ONE ×2 (09:45→10:53)
[2021-09-06] MEDS ORDERED: LIDOCAINE 2% MPF 5 ML VIAL ONE (09:46)
--- NOTE | 2021-09-06 11:27 | P.OP ---
Preoperative diagnosis: Multiple Ventral Abdominal Wall Hernias Postoperative diagnosis: Multiple Ventral Abdominal Wall Hernias Primary procedure: Laparoscopic ventral hernia repair with mesh Anesthesia: GETA + Local Estimated blood loss: <10cc Specimen: hernia contents Findings: 3 incarcerated seperate ventral hernias Complications: None Implants: Bard Ventralite ST [id number] mesh with echo, sorbafix tacks Transferred to: Recovery Room Condition: Good
[2021-09-06] MEDS ORDERED: GLYCOPYRROLATE 0.2 MG/ML SYR ONE (11:33)
[2021-09-06] MEDS ORDERED: NEOSTIGMINE 1 MG/ML -5 ML ONE (11:34)
[2021-09-06] MEDS: HYDROMORPHONE HCL 2 MG/ML inj ONE ×4 (11:52→12:12)
[2021-09-06] MEDS: HYDROMORPHONE HCL 1 MG/ML INJ ONE ×3 (12:20→12:47)
[2021-09-06] MEDS ORDERED: HYDROCODONE/APAP 7.5/325 MG TAB ONE (13:15)
[2021-09-06 13:22] VITALS: TEMP 97.9; O2SAT 100
[2021-09-06 14:43] VITALS: BP 156/91
--- NOTE | 2021-09-06 22:33 | OP ---
Date of Procedure: 09/06/2021 Surgeon: Farhat Lamas MD, Brief History Of Present Illness: The patient is a 31-year-old male who comes in with multiple abdom inal hernias, seen in clinic. They were tender, irreducible and as such he was deemed appropriate fo r operative intervention. Preoperative Diagnosis: Multiple ventral abdominal hernias. Postoperative Diagnosis: Multiple ventral abdominal hernias. Procedure Performed: Laparoscopic ventral hernia repair with mesh. Anesthesia: General endotracheal plus local with 0.25% Marcaine. Estimated Blood Loss: Less than 10 cc. Specimens: Hernia contents. Findings: 1.Three incarcerated separate ventral hernias with omentum, preperitoneal fat. 2.Umbilical vein appeared patent and required ligation with LigaSure device. Complications: None. Implants: Bard Ventralight ST mesh with Echo Positioning System, 15.2 cm x 20.3 cm and SorbaFix abso rbable fixation tacks approximately 110 used. Disposition: The patient transferred to recovery room in good condition. Procedure In Detail: After informed consent was obtained, the patient was brought to the operating r oom and prepped and draped in the usual sterile fashion. After adequate anesthesia was achieved, I m robb a small stab incision in the left upper quadrant and a 5 mm 0-degree optical trocar was introduce d in the abdomen without any complication. Insufflation was obtained at 15 mmHg at this time. There was no injury to vital structures upon entry into abdomen. Additional trocar site was chosen in the left lower quadrant. This area was similarly anesthetized and sharply incised and a 12 mm trocar wa s introduced under direct visualization without complication. At this point, I inspected the midline and found omentum entrapped within an umbilical ventral abdominal hernia. This was reduced using Li gaSure device. After this was reduced, hernia contents were sent off for pathologic examination. I then swept the preperitoneal fat off the anterior abdominal wall to allow for an appropriate landing zone. Two additional hernias were appreciated superiorly. They were approximately 1 cm defects with very significant amount of preperitoneal fat within these. These were removed, ligated and sent off for pathologic examination as well from both hernia defects of similar size extending up to the falc iform ligament, which was swept back also to allow for appropriate landing zone. At this point, the hernia defects were sized. A 15.2 x 20.[address] mesh with Echo Positioning System wa s sized appropriately, brought in through the lateral trocar position using the balloon deployment sy stem centrally and using the SorbaFix absorbable fixation tacking system. I secured a crown at this point and removed the balloon deployment system. At this point, a double crown was deployed using th e SorbaFix fixation tacks with good apposition of the mesh to the anterior abdominal wall. In additi on, tacks were used in the midline as well. Prior to mesh placement, however, I did sew the defect c losed using an Endo Stitch with a V-Loc imbricating the sac as well. This was done prior to mesh pos itioning. At this point, the left lower quadrant trocar site was closed using a Larry-Ekta sutu re passer with 0 Vicryl in an interrupted fashion with good approximation of tissues. The abdomen wa s completely desufflated under direct visualization without any complication. All remaining trocar s ites were inspected, irrigated, and closed using a 4-0 Monocryl in a running fashion. Dermabond was placed over top. The patient tolerated the procedure without evidence of complication and transferred to PACU in good condition. All counts were correct at the end of the case. MARY/FERNANDO Voice ID: [id number] Report ID: [id number]
== END 2021-09-06 14:35 | disposition home or self-care (01) ==
LOC: OR 07:40
PROVIDERS: ATTEND Surgery
PROC: 0WUF4JZ Supplement Abdominal Wall with Synthetic Substitute, Percutaneous Endoscopic Approach (ICD-10-PCS; principal; 2021-09-06 09:00)
DX: K43.6 Other and unspecified ventral hernia with obstruction, without gangrene (principal); Z20.822 Contact with and (suspected) exposure to COVID-19
CPT/HCPCS: 49653 ×3; 93005; 85025; 80048; 36415; 88302; U0002; J2704; J2250; J1170 ×2; J3010 ×2; J2710; J0690; J7120; J2405 ×2; 88305

== ENCOUNTER 2022-01-31 06:56 | Day surgery (SDC) | payer OTHER ==
[2022-01-31] MEDS: Ringers Lactate 1,000 ML IV ONE ×2 (07:15→07:54)
[2022-01-31] MEDS ORDERED: EPINEPHRINE/PF 1 MG/ML AMP ONE (07:23)
[2022-01-31] MEDS ORDERED: propofoL 200 MG/20 ML VIAL IV ONE (08:04)
[2022-01-31] MEDS ORDERED: LIDOCAINE 1% MPF 5 ML VIAL ONE (08:04)
--- NOTE | 2022-01-31 08:46 | ENDO RPT ---
[address], [address] EGD PROCEDURE REPORT EXAM DATE: 01/31/2022 PATIENT NAME: Tyler Mahmood MR#: [id number] BIRTHDATE: 1990 ATTENDING: Farhat Lamas DR STATUS: outpatient CAMPUS WELLNESS COORDINATOR: Bhavya Vargas RN, Bhavana Hernandez RN, and Patrick Shearer [facility] INDICATIONS: The patient is a 31 yr old Male here for an EGD due to GERD, dyspepsia, and epigastric pain PROCEDURE PERFORMED: EGD with biopsy for H. pylori MEDICATIONS: Per Anesthesia. TOPICAL ANESTHETIC: none CONSENT: The patient understands the risks and benefits of the procedure and understands that these risks include, but are not limited to: sedation, allergic reaction, infection, perforation and/or bleeding. Alternative means of evaluation and treatment include, among others: physical exam, x-rays, and/or surgical intervention. The patient elects to proceed with this endoscopic procedure. DESCRIPTION OF PROCEDURE: During intra-op preparation period all mechanical medical equipment was checked for proper function. Hand hygiene and appropriate measures for infection prevention was taken. Procedure, possible complications, and alternatives including but not limited to the possibility of bleeding, perforation, tear, infection, sepsis, need for surgery, need for blood transfusion, and anesthesia related complications were explained to the patient. After the risks, benefits and alternatives of the procedure were thoroughly explained, Informed consent was verified, confirmed and timeout was successfully executed by the treatment team. The patient was placed in the left lateral position. The patient was anesthetized with topical anesthesia. Through the anesthetized oropharyngeal area, the scope was passed without any difficulty. The EG-[id number] ([id number]) endoscope was introduced through the mouth and advanced to the second portion of the duodenum. Retroflexed views revealed no abnormalities. The gastroscope was then slowly withdrawn and removed. Multiple erosions were found in the fundus. Multiple biopsies were obtained and sent to pathology. A biopsy for H. pylori was taken. Mild gastritis was found in the body and the antrum of the stomach. Multiple biopsies were obtained and sent to pathology. A biopsy for H. pylori was taken. Bile reflux was found in the gastroesophageal junction. A biopsy of the GEJ was obtained to rule out Powell's. ADVERSE EVENTS: There were no complications. IMPRESSIONS: 1. Multiple erosions were found in the fundus 2. Mild gastritis was found in the body and the antrum of the stomach RECOMMENDATIONS: 1. follow-up: office 2 week(s) 2. acid suppression therapy 3. anti-reflux regimen 4. await biopsy results 5. avoid NSAIDS 6. follow-up of helicobacter pylori status, treat if indicated REPEAT EXAM: aFrhat Lamas DR eSigned: Farhat Lamas DR 01/31/2022 8:46 AM cc: CPT CODES: ICD9 CODES: PATIENT NAME: Tyler Mahmood MR#: [id number]
--- NOTE | 2022-01-31 08:49 | ENDO RPT ---
[address], [address] COLONOSCOPY PROCEDURE REPORT EXAM DATE: 01/31/2022 PATIENT NAME: Tyler Mahmood MR #: [id number] BIRTHDATE: 1990 ATTENDING: Farhat Lamas DR STATUS: outpatient FACTORY WORKER: Bhavana Hernandez RN, Bhavya Vargas RN, and Patrick Shearer [facility] INDICATIONS: The patient is a 31 yr old Male here for a colonoscopy due to unexplained chronic diarrhea PROCEDURE PERFORMED: Colonoscopy with biopsy MEDICATIONS: Per Anesthesia. ESTIMATED BLOOD LOSS: None CONSENT: The patient understands the risks and benefits of the procedure and understands that these risks include, but are not limited to: sedation, allergic reaction, infection, perforation and/or bleeding. Alternative means of evaluation and treatment include, among others: physical exam, x-rays, and/or surgical intervention. The patient elects to proceed with this endoscopic procedure. DESCRIPTION OF PROCEDURE: During intra-op preparation period all mechanical medical equipment was checked for proper function. Hand hygiene and appropriate measures for infection prevention was taken. Procedure, possible complications, alternatives including, but not limited to possibility of bleeding, perforation, tear, infection, sepsis, need for surgery, need for blood transfusion, were explained to the patient. After the risks, benefits and alternatives of the procedure were thoroughly explained, Informed consent was verified, confirmed and timeout was successfully executed by the treatment team. The patient was placed in the left lateral position. A digital rectal exam was performed and revealed internal thrombosed hemorrhoids. After appropriate level of anesthesia, the scope was passed. The EC-[id number] ([id number]) endoscope was introduced through the anus and advanced to the cecum, which was identified by both the appendix and ileocecal valve. The quality of the prep was fair. The instrument was then slowly withdrawn as the colon was fully examined. Scope withdrawal time was 9 minutes. COLON FINDINGS: Moderate sized internal hemorrhoids were found. The colon mucosa was otherwise normal. A random biopsy was performed from the Sigmoid Colon with cold forcepts. Retroflexed views revealed no abnormalities. The scope was then completely withdrawn from the patient and the procedure terminated. ADVERSE EVENTS: There were no complications. IMPRESSIONS: 1. Moderate sized internal hemorrhoids 2. The colon mucosa was otherwise normal; biopsy was performed RECOMMENDATIONS: 1. avoid NSAIDS 2. await biopsy results 3. fiber rich diet 4. follow-up: office 2 week(s) 5. Monitor for any evidence of rectal bleeding. 6. yearly hemoccult starting in 4 years 7. hemorrhoidal hygiene 8. increase dietary water RECALL: for Colonoscopy, pending biopsy results. Farhat Lamas DR eSigned: Farhat Lamas DR 01/31/2022 8:49 AM cc: CPT CODES: ICD9 CODES: PATIENT NAME: Tyler Mahmood MR#: [id number]
[2022-01-31 09:42] VITALS: BP 136/86
[2022-01-31 09:43] VITALS: TEMP 97.8; O2SAT 99
== END 2022-01-31 09:15 | disposition home or self-care (01) ==
LOC: OR 06:56
PROVIDERS: ATTEND Surgery
PROC: 0DB68ZX Excision of Stomach, Via Natural or Artificial Opening Endoscopic, Diagnostic (ICD-10-PCS; 2022-01-31)
PROC: 0DB48ZX Excision of Esophagogastric Junction, Via Natural or Artificial Opening Endoscopic, Diagnostic (ICD-10-PCS; 2022-01-31)
PROC: 0DBN8ZX Excision of Sigmoid Colon, Via Natural or Artificial Opening Endoscopic, Diagnostic (ICD-10-PCS; 2022-01-31)
PROC: 0DB98ZX Excision of Duodenum, Via Natural or Artificial Opening Endoscopic, Diagnostic (ICD-10-PCS; principal; 2022-01-31 08:00)
PROC: 0DB78ZX Excision of Stomach, Pylorus, Via Natural or Artificial Opening Endoscopic, Diagnostic (ICD-10-PCS; 2022-01-31 08:00)
DX: K52.9 Noninfective gastroenteritis and colitis, unspecified (principal); K21.9 Gastro-esophageal reflux disease without esophagitis; R10.13 Epigastric pain; K29.50 Unspecified chronic gastritis without bleeding; A04.8 Other specified bacterial intestinal infections; K21.00 Gastro-esophageal reflux disease with esophagitis, without bleeding; K64.8 Other hemorrhoids; K25.9 Gastric ulcer, unspecified as acute or chronic, without hemorrhage or perforation
CPT/HCPCS: 88312; 88305; 43239; 45380; J2704; J7120; J0171; J2001

== ENCOUNTER 2022-06-12 20:54 | Emergency (ER) | payer OTHER ==
--- OUTSIDE RECORDS SUMMARY | 2022-06-12 20:57 | XMS REPORT | Continuity of Care Document ---
:1990 Author Organization [facility] t Address [address] [place] [place] [address] Care Team Providers Name Role Phone George Britton Jr. Primary Care Physician George Britton Attending Clinician Unavailable FRANK GUZMAN Attending Clinician Unavailable ZULEIMA HENDERSON Attending Clinician Unavailable Zuleima Henderson DO Attending Clinician Payers Payer Name Policy Type Policy Number Effective Date Expiration Date [employer]co [employer] [place] [id number] 2019 HEALTHCARE 00:00:00 PPO/[place] [id number] [place] [id number] [facility] Problems Condition Condition Condition Status Onset Resolution Last Treating Co mments Source Name Details Category Date Date Treatment Clinician Date [id number] Family Problem Active Common history of [facility] prostate - [facility] [id number] Encounter Problem Active Com mon for Spirit vasectomy - [facility] counseling [facility] No known No known Disease Unive rs active active ity of problems problems [facility] Allergies, Adverse Reactions, Alerts Allergy Allergy Status Severity Reaction(s) Onset Inactive Treating Comm ents Source Name Type Date Date Clinician NO KNOWN Drug Active Univers ALLERGIE Class ity of S [facility] Social History Social Habit Start Date Stop Date Quantity Comments Source Sex Assigned At [facility] lauren - [facility] History of [facility] - Tobacco Use [facility] Exposure to 2021-12-14 2021-12-24 Not sure [facility]-CoV-2 00:00:00 14:16:00 [facility] (event) Branch Alcohol intake 2021-12-21 2021-12-21 Current University of 00:00:00 00:00:00 non-drinker of [facility] alcohol (finding) Branch Tobacco use and 2017-08-05 2017-08-05 Smokeless tobacco Un iversity of exposure 00:00:00 00:00:00 non-user [facility] Smoking Status Start Date Stop Date Source Never Smoker [facility] Medications Ordered Filled Start Stop Current Ordering Indication Dosage Frequency Signature Comments Components Source Medication Medication Date Date Medication? Clinician (SIG) Name Name rabies 20U/kg 2,994 Univers immune 12-21 Units (20 ity of globulin 23:45: 00:11 Units/kg [facility] (PF) 00 :00 ?149.7 Medical (HYPERRAB kg), Branch (PF)) Intramuscu injection lar, ONCE, 2,994 Units 1 dose, On 12/21/21 at 1845, Routine No known No No known Unive rs medications 12-21 medication it y of 17:34: s [address] No known No No known Unive rs medications 12-21 medication it y of 17:34: s [address] Acetaminoph Acetaminoph 2020-06- No 1{table QID Acetaminop en-Codeine en-Codeine 03-24 t_as_ne hen-Codein #3 300-30 #3 300-30 00:00: 00:00 eded} e #3 MG MG 00 :00 300-30 MG Sertraline Sertraline No 1{table QD Sertraline HCl 100 MG HCl 100 MG t} HCl 100 MG Multivitami Multivitami No 1{table QD Multivitam n - n - t} in - Multivitami Multivitami No 1{table QD Multivitam n - n - t} in - Sertraline Sertraline No 1{table QD Sertraline HCl 100 MG HCl 100 MG t} HCl 100 MG Immunizations Ordered Filled Immunization Date Status Comments Sourc e Immunization Name Name Human Rabies 2021-12-24 Completed [place] [facility] Culture (RABAVERT) Human Rabies 2021-12-21 Completed [place] o f Vaccine From 00:00:00 [facility] Chicken Fibroblast [facility] Culture (RABAVERT) Human Rabies 2021-12-21 Completed [place] [facility] Vital Signs Vital Name Observation Time Observation Value Comments Source Systolic blood 2021-12-24 18:38:00 160 mm[Hg] Univer [facility]ity of [facility] Diastolic blood 2021-12-24 18:38:00 96 mm[Hg] Unive rsity of [facility] Heart rate 2021-12-24 18:35:00 96 /min [facility] Body temperature 2021-12-24 18:35:00 37.11 [facility] Respiratory rate 2021-12-24 18:35:00 18 /min [facility] Body weight 2021-12-24 18:35:00 149.687 kg [facility] BMI 2021-12-24 18:35:00 48.73 kg/m2 [facility] Oxygen saturation in 2021-12-24 18:35:00 98 /min University of Arterial blood by [facility] Pulse oximetry Branch Systolic blood 2021-12-22 00:38:00 171 mm[Hg] Univer sity of [facility] Diastolic blood 2021-12-22 00:38:00 86 mm[Hg] Unive rsity of [facility] Heart rate 2021-12-22 00:38:00 79 /min [facility] Respiratory rate 2021-12-22 00:38:00 18 /min [facility] Oxygen saturation in 2021-12-22 00:38:00 98 /min University Arterial blood by [facility] Pulse oximetry Branch Body temperature 2021-12-21 22:37:00 37.17 [facility] height 2021-12-21 22:37:00 175.3 cm [facility] Body weight 2021-12-21 22:37:00 149.687 kg [facility] BMI 2021-12-21 22:37:00 48.73 kg/m2 [facility] height 2021-03-21 10:30:00 69 [in_i] [facility] weight 2021-03-21 10:30:00 327 [lb_av] [facility] temperature 2021-03-21 10:30:00 97.9 [degF] [facility] bmi 2021-03-21 10:30:00 48.28 kg/m2 [facility] oximetry 2021-03-21 10:30:00 97 % [facility] blood pressure 2021-03-21 10:30:00 130 mm[Hg] [facility] - systolic [facility] blood pressure 2021-03-21 10:30:00 73 mm[Hg] [facility] - diastolic [facility] height 2021-01-23 13:30:00 69 [in_i] [facility] weight 2021-01-23 13:30:00 327.2 [lb_av] [facility] temperature 2021-01-23 13:30:00 98.4 [degF] [facility] bmi 2021-01-23 13:30:00 48.31 kg/m2 [facility] oximetry 2021-01-23 13:30:00 97 % [facility] blood pressure 2021-01-23 13:30:00 137 mm[Hg] [facility] - systolic [facility] blood pressure 2021-01-23 13:30:00 87 mm[Hg] [facility] - diastolic [facility] Procedures Procedure Date / Time Performed Performing Clinician [facility] e CONSENT/REFUSAL FOR 2021-12-24 18:31:52 Doctor Unassigned, No Un [facility] DIAGNOSIS AND Name Medical Branch TREATMENT NOTICE OF PRIVACY 2021-12-21 22:29:43 Doctor Unassigned, No Univ [facility] PRACTICES Name [facility] Branch CONSENT/REFUSAL FOR 2021-12-21 22:28:51 [facility], [facility] Name [facility] Branch TREATMENT Encounters Start End Encounter Admission Attending Care Care Encounter Source Date/Time Date/Time Type Type Clinicians Facility Department ID 2021-06-26 Outpatient [place], STLMLC STLMLC [id number] Common 13:43:45 George [id number] [facility] 2021-06-26 Outpatient [place], STLMLC STLMLC [id number] Common 13:42:44 George [id number] [facility] 2021-12-24 2021-12-24 Emergency X THMOAS [facility] ERT [id number] Univers 13:37:00 14:30:00 FRANK steven [facility] 2021-12-24 2021-12-24 Emergency Thomas [facility] [id number] Univers 13:37:00 14:30:00 Frank [place] [id number] i ty [facility] [id number] [facility] [id number] [address] 2021-12-21 2021-12-21 Emergency X BEATRIZ [facility] ERT [id number] Univers 17:40:00 19:45:00 ZULEIMA steven [facility] 2021-12-21 2021-12-21 [facility] [id number] Univers 17:40:00 19:45:00 Zuleima [place] [id number] ity [facility] [id number] [facility] [id number] [address] 2021-03-21 2021-03-21 (PROC) STLMLC STLMLC [id number] Co mmon 00:00:00 00:00:00 Procedure Spir it - [facility] 2021-01-23 2021-01-23 OFFICE STLMLC STLMLC [id number] Co mmon 00:00:00 00:00:00 VISIT NEW Spir it PT LEVEL 3 - [facility] Results This patient has no known results.
[2022-06-12 23:04] LABS: SARS-COV-2 RT PCR NEGATIVE (NEGATIVE)
--- NOTE | 2022-06-12 23:09 | ER ---
Nurse's Notes [facility] Name: Tyler Mahmood Age: 31 yrs Sex: Male : 1990 Arrival Date: 06/12/2022 Time: 21:01 Bed 17 Private MD: Diagnosis: Acute tonsillitis, unspecified;Cough Presentation: 06/12 21:11 Chief complaint: Patient states: he has white pus on his tonsill's for 3 to 4 days with bb pain was hoping it would go away denies fever. Coronavirus screen: At this time, the client does not indicate any symptoms associated with coronavirus-19. Ebola Screen: No symptoms or risks identified at this time. Initial Sepsis Screen: Does the patient meet any 2 criteria? No. Patient's initial sepsis screen is negative. Does the patient have a suspected source of infection? No. Patient's initial sepsis screen is negative. Risk Assessment: Do you want to hurt yourself or someone else? Patient reports no desire to harm self or others. Onset of symptoms was June 08, 2022. 21:11 Method Of Arrival: Ambulatory bb 21:11 Acuity: ANGELINE 4 bb Historical: - Allergies: 21:12 No Known Allergies; bb - Home Meds: 21:12 sertraline 100 mg Oral tab 1 tab once daily [Active]; bb - PMHx: 21:12 Anxiety; bb - PSHx: 21:12 Vasectomy; hernia; bb - Immunization history:: Client reports receiving the 2nd dose of the Covid vaccine, Moderna. - Social history:: Smoking status: Patient denies any tobacco usage or history of. Screenin:22 [facility] ED Fall Risk Assessment (Adult) History of falling in the last 3 months, jb4 including since admission No falls in past 3 months (0 pts) Confusion or Disorientation No (0 pts) Intoxicated or Sedated No (0 pts) Impaired Gait No (0 pts) Mobility Assist Device Used No (0 pt) Altered Elimination No (0 pt) Score/Fall Risk Level 0 - 2 = Low Risk Oriented to surroundings, Maintained a safe environment. Abuse screen: Denies threats or abuse. Nutritional screening: No deficits noted. Tuberculosis screening: No symptoms or risk factors identified. Assessment: 21:30 General: Appears in no apparent distress. comfortable, Behavior is calm, cooperative, jb4 appropriate for age. Pain: Complains of pain in left aspect of posterior pharynx and right aspect of posterior pharynx Pain does not radiate. Pain currently is 7 out of 10 on a pain scale. Neuro: Level of Consciousness is awake, alert, obeys commands, Oriented to person, place, time, situation. Cardiovascular: Patient's skin is warm and dry. Respiratory: Airway is patent Respiratory effort is even, unlabored, Respiratory pattern is regular, symmetrical. GI: No signs and/or symptoms were reported involving the gastrointestinal system. : No signs and/or symptoms were reported regarding the genitourinary system. EENT: Throat is clear is reddened has patchy exudate with gag reflex present. Derm: Skin is intact, Skin is dry, Skin is normal, Skin temperature is warm. 22:59 Reassessment: Patient appears in no apparent distress at this time. Patient and/or jb4 family updated on plan of care and expected duration. Pain level reassessed. Patient is alert, oriented x 3, equal unlabored respirations, skin warm/dry/pink. Vital Signs: 21:11 BP 160 / 68; Pulse 93; Resp 18 S; Temp 98.2(O); Pulse Ox 100% on R/A; Weight 145.15 kg bb (R); Height 5 ft. 9 in. (175.26 cm) (R); Pain 7/10; 21:11 Body Mass Index 47.26 (145.15 kg, 175.26 cm) bb ED Course: 21:01 Patient arrived in ED. es 21:12 Triage completed. bb 21:12 Arm band placed on Patient placed in an exam room, on a stretcher. bb 21:22 Curtis Nascimento, RN is Primary Nurse. jb4 21:24 Britton Santos PA is PHCP. cp 21:24 Jacquelin De La Cruz MD is Attending Physician. cp 23:22 Patient has correct armband on for positive identification. Bed in low position. Call jb4 light in reach. Side rails up X 1. 23:22 No provider procedures requiring assistance completed. Patient did not have IV access jb4 during this emergency room visit. Administered Medications: 23:22 Drug: Clindamycin 300 mg Route: PO; jb4 23:22 Follow up: Response: Medication administered at discharge. jb4 Outcome: 23:08 Discharge ordered by . vasquez 23:22 Discharged to home ambulatory. jb4 23:22 Condition: stable 23:22 Discharge instructions given to patient, Instructed on discharge instructions, follow up and referral plans. medication usage, Demonstrated understanding of instructions, follow-up care, medications, Prescriptions given X 3. 23:23 Patient left the ED. jb4 Signatures: Ariela Haas Brenda, RN RN Britton Ray PA PA cp Bryson, James RN RN jb4
--- NOTE | 2022-06-12 23:09 | EDPHYS ---
Physician Documentation [facility] Name: Tyler Mahmood Age: 31 yrs Sex: Male : 1990 Arrival Date: 06/12/2022 Time: 21:01 Bed 17 Private MD: ED Physician Jacquelin De La Cruz HPI: 06/12 22:00 This 31 yrs old Black Male presents to ER via Ambulatory with complaints of Cough, Sore cp Throat. 22:00 The patient or guardian reports cough, that is intermittent, sore throat. Onset: The cp symptoms/episode began/occurred 4 day(s) ago. Severity of symptoms: in the emergency department the symptoms are unchanged, despite home interventions. Associated signs and symptoms: Pertinent positives: earache, sore throat, Pertinent negatives: diarrhea, fever, vomiting. Historical: - Allergies: 21:12 No Known Allergies; bb - Home Meds: 21:12 sertraline 100 mg Oral tab 1 tab once daily [Active]; bb - PMHx: 21:12 Anxiety; bb - PSHx: 21:12 Vasectomy; hernia; bb - Immunization history:: Client reports receiving the 2nd dose of the Covid vaccine, Moderna. - Social history:: Smoking status: Patient denies any tobacco usage or history of. ROS: 22:05 Constitutional: Negative for body aches, chills, fever, poor PO intake. cp 22:05 Eyes: Negative for injury, pain, redness, and discharge. cp 22:05 ENT: Positive for ear pain, sore throat. 22:05 Cardiovascular: Negative for chest pain, palpitations. 22:05 Respiratory: Positive for cough, Negative for shortness of breath, wheezing. 22:05 Abdomen/GI: Negative for abdominal pain, nausea, vomiting, and diarrhea. 22:05 Skin: Negative for rash. 22:05 Neuro: Negative for altered mental status, headache, weakness. 22:05 All other systems are negative. Exam: 22:10 Constitutional: The patient appears in no acute distress, alert, awake, non-toxic, well cp developed, well nourished, obese. 22:10 Head/Face: Normocephalic, atraumatic. cp 22:10 Eyes: Periorbital structures: appear normal, Conjunctiva: normal, no exudate, no injection, Sclera: no appreciated abnormality, Lids and lashes: appear normal, bilaterally. 22:10 ENT: External ear(s): are unremarkable, Ear canal(s): are normal, clear, TM's: dullness, bilaterally, Nose: is normal, Mouth: Lips: moist, Oral mucosa: moist, Posterior pharynx: Airway: no evidence of obstruction, patent, Tonsils: bilaterally enlarged, with erythema, with exudate, Uvula: midline, erythema, that is moderate, Voice: is normal. 22:10 Neck: Lymph nodes: lymphadenopathy is appreciated, anterior cervical nodes. 22:10 Chest/axilla: Inspection: normal. 22:10 Cardiovascular: Rate: normal, Rhythm: regular. 22:10 Respiratory: the patient does not display signs of respiratory distress, Respirations: normal, no use of accessory muscles, no retractions, labored breathing, is not present, Breath sounds: are clear throughout, no decreased breath sounds, no stridor, no wheezing. 22:10 Abdomen/GI: Exam negative for discomfort, distension, guarding, Inspection: abdomen appears normal. Vital Signs: 21:11 BP 160 / 68; Pulse 93; Resp 18 S; Temp 98.2(O); Pulse Ox 100% on R/A; Weight 145.15 kg bb (R); Height 5 ft. 9 in. (175.26 cm) (R); Pain 7/10; 21:11 Body Mass Index 47.26 (145.15 kg, 175.26 cm) bb MDM: 21:28 Patient medically screened. cp 22:10 Differential Diagnosis: Influenza Pharyngitis Otitis Media Viral Syndrome Pneumonia cp Other strep throat, COVID-19. 23:07 Data reviewed: vital signs, nurses notes, lab test result(s). cp 23:07 I considered the following discharge prescriptions or medication management in the emergency department Medications were administered in the Emergency Department. See MAR. Test considered but Not performed: Other Details mono spot, cbc. Counseling: I had a detailed discussion with the patient and/or guardian regarding: the historical points, exam findings, and any diagnostic results supporting the discharge/admit diagnosis, lab results, to return to the emergency department if symptoms worsen or persist or if there are any questions or concerns that arise at home. ED course: VSS. Patient appears non-toxic and no signs of respiratory distress. Will discharge to home for continued monitoring. 06/12 21:50 Order name: Strep cp 06/12 21:50 Order name: COVID-19/FLU A+B cp 06/12 22:49 Order name: Throat Culture EDMS Administered Medications: 23:22 Drug: Clindamycin 300 mg Route: PO; jb4 23:22 Follow up: Response: Medication administered at discharge. [email or web address] Disposition Summary: 06/12/22 23:08 Discharge Ordered Location: Home cp Problem: new cp Symptoms: have improved cp Condition: Stable cp Diagnosis - Acute tonsillitis, unspecified cp - Cough cp Followup: cp - With: Emergency Department - When: As needed - Reason: Worsening of condition Discharge Instructions: - Discharge Summary Sheet cp - Tonsillitis cp - Cough, Adult cp Forms: - Medication Reconciliation Form cp - Thank You Letter cp - Antibiotic Education cp - Prescription Opioid Use cp - Work release form jb4 Prescriptions: - Lidocaine Viscous - take 5 milliliter by ORAL route every 4-6 hours As needed; 1 bottle; Refills: cp 0, Product Selection Permitted - Clindamycin HCl 300 mg Oral Capsule - take 1 capsule by ORAL route every 6 hours for 10 days; 40 capsule; Refills: 0, cp Product Selection Permitted - Ibuprofen 800 mg Oral Tablet - take 1 tablet by ORAL route every 8 hours As needed take with food; 30 tablet; cp Refills: 0, Product Selection Permitted Signatures: Dispatcher [employer] EDMS Rekha Granda, RN RN Britton Ray PA PA Curtis Geronimo RN RN [email or web address]
[2022-06-12 23:50] VITALS: BP 160/68; TEMP 98.2; O2SAT 100
== END 2022-06-12 23:23 | disposition home or self-care (01) ==
LOC: ER 20:54
DX: J03.90 Acute tonsillitis, unspecified (principal); Z20.822 Contact with and (suspected) exposure to COVID-19
CPT/HCPCS: 87070; 87081; 0240U; 99283